=== PATIENT | female | born 1980 | race Caucasian/White ===

== ENCOUNTER 2025-03-04 14:34 | Inpatient (IN) | payer MEDICARE, MEDICAID ==
[2025-03-04] MEDS ORDERED: ACETAMINOPHEN TAB 325 MG TAB PO PRN (15:02)
[2025-03-04] MEDS ORDERED: MAG HYDROX/AL HYDROX/SIMETH 355 ML BOTTLE PO PRN (15:02)
[2025-03-04] MEDS ORDERED: hydrOXYzine HCL 50 MG/ML 1 ML VIAL IM PRN (16:37)
[2025-03-05] MEDS: CYCLOBENZAPRINE 10 MG TAB PO PRN
[2025-03-05] MEDS ORDERED: NICOTINE 14MG/24HR PATCH TRANSDERM SCH (09:00)
[2025-03-05] MEDS ORDERED: GABAPENTIN 100 MG CAP PO PRN (13:19)
--- NOTE | 2025-03-05 13:26 | P.HP ---
Psychiatric H&P - . H&P Date: 03/05/25 History & Physical: Allergies Allergy/AdvReac Type Severity Reaction Status Date / Time meperidine from Demerol Allergy Unknown Verified 03/04/25 15:02 Vital Signs Temp 98.4 F 03/05/25 09:00 Pulse 133 H 03/05/25 09:00 Resp 18 03/05/25 09:00 BP 121/85 03/05/25 09:00 Pulse Ox 98 03/05/25 09:00 FiO2 Intake & Output 03/04/25 03/05/25 03/05/25 18:59 06:59 18:59 Weight 74 kg 70.76 kg Laboratory Last Values Estimated Ave Glu mg/dL 120 mg/dL 03/05/25 07:55 Hemoglobin A1c 5.8 % (<=6.0) 03/05/25 07:55 03/05/25 13:16 IDENTIFYING DATA: Patient is a 44-year-old female, on SSD and living [facility] CHIEF COMPLAINT: AH, delusions HPI: Patient presented to the hospital with psychosis. Per EPS, "Pt is a transfer from [facility]. Reports state that pt has been having new onset AH that are threatening in nature. Pt stated that they are coming from her tooth. Report states that he is delusional and paranoid. Also reports no sleep in 4 days. Denies SI or HI. VSS, HCG neg, Labs reviewed and RBC 5.51H but otherwise remarkable, TSH complete and WNL. L sided CP r/t left lower lung base atelectasis. EKG SR; Borderline:possible L atrial enlargement. Right hip pain x 2 year. Able to complete at [facility] independently, no DME reported. UDS +marijuana. ETOH <10. Covid negative. No prns or restraints. ED has medically cleared pt per Pamela, RN and charting/documentation. No guardian. Pt is pet and cert." Patient seen and evaluated on the unit and was agreeable with speaking to lyric writer in office. She states for the past month she has been experiencing auditory hallucinations that are negative in nature, calling her bad names and cuss words. This appears ego dystonic as she is aware of them and does not identify with them. She also reports paranoia described as feeling as though people are out to get her family. OCD screening was negative. Patient reports experiencing chest pain that ultimately caused her to go to the ED however workup has been unremarkable including EKG. She no longer hears voices stating she last heard them yesterday. She does report some stressors including financially in addition to taking care of her grandkids daily, dropping them off at school and getting them ready in the morning. She reports some sleep difficulties otherwise denies any appetite changes, low energy, anhedonia, poor concentration. Patient denies any suicidal or homicidal ideations intent or plan. At this time patient denies any auditory or visual hallucinations. Patient denies any flight of ideas racing thoughts and increased in goal directed behavior. Patient admits to using THC daily, denies any alcohol or nicotine use. She does report a history of head injury back in the 90s that caused her to have a concussion. She reports recently started Flexeril for muscle pain. PAST PSYCHIATRIC HISTORY: Patient has no past psych history. Patient denies being on any psychiatric medications. Patient denies any previous psychiatric hospitalizations. Patient denies any psychiatric outpatient follow-up. Patient denies any history of suicide attempts in the past. PMH: as per ER note ALLERGIES: as per EMR SUBSTANCE USE HISTORY: Cannabis daily FAMILY PSYCHIATRIC/SUBSTANCE USE HISTORY: Patient states her aunt has schizophrenia SOCIAL HISTORY: Patient is living with her fianc and she has 2 children and 2 grandkids. She completed high school however is on SSD. MENTAL STATUS EXAM: General Appearance: Patient appears to be stated age is alert, directable, and attempts to cooperate. Patient appears to have fair hygiene and grooming. She is wearing glasses Behavior: Patient is seated without any agitated behavior. Speech: Patient's speech is fluent and nonpressured. Mood/Affect: Patient reports their mood is "anxious", affect is congruent and constricted. Suicidality/Homicidality: Patient denies having any homicidal ideation intent or plan. Denies any suicidal ideations intent or plan Perceptions: Patient denies any visual hallucinations and denies any auditory hallucinations Though content/process: There is no evidence of any delusional thought content and thought process is linear and goal-directed. Memory and concentration: AOX3, grossly intact for the purposes of this session. Can spell "WORLD" backwards Judgment and insight: Fair STRENGTHS/WEAKNESSES: strength is that patient is resilient and has family support. Weakness is that patient has poor judgment and has financial stressors INTELLECT: Average IMPRESSIONS: Psychosis, unspecified Rule out medication induced psychotic disorder Cannabis use disorder Anxiety, unspecified PLAN: -Patient is admitted under voluntary status to [facility] for stabilization of psychiatric symptoms and safety. Patient has signed adult voluntary form and and is placed in patient's chart. -Medications : Start Seroquel 50 mg at bedtime for psychosis/sleep, discontinue Flexeril and start gabapentin instead for pain - Ativan and Haldol PRN for agitation/aggression -Patient was counselled on substance abuse and desired to cut back on use -Patient was informed of the risks, benefits and side effects of the medication and patient verbally consented to taking the medications. Patient signed med consent form and was placed in chart. Patient offered and accepted patient education sheet for antipsychotics. -Internal Medicine consult to perform medical evaluation and physical. -NRT -not needed as patient does not smoke -SW on board for discharge planning. Encourage patient to participate in groups to work on coping skills. Anticipate discharge in 2-3 days back home with lydia
[2025-03-05] MEDS: hydrOXYzine HCL 25 MG TAB PO PRN (15:46)
[2025-03-05] MEDS: MAGNESIUM HYDROXIDE 2,400 MG/30 ML CUP PO PRN (15:47)
[2025-03-05] MEDS: IBUPROFEN 600 MG TAB PO PRN (15:47)
[2025-03-05] MEDS: QUEtiapine 50 MG TAB PO SCH (21:44)
--- NOTE | 2025-03-06 00:16 | P.MDCNMH ---
<Jo Ann Anderson - Last Filed: 03/06/25 00:03> History of Present Illness H&P Date: 03/05/25 Patient is a 44 year old female who was transferred from [facility]. She is seen today in medical consultation for medical management. It was reported that she has been having new onset AH which are threatening in nature. The report also mention that she is delusional and paranoid and has not slept in 4 days. The patient had mentioned earlier that her primary reason to present to the ED was chest pain. However the workup in the ED was unremarkable including EKG.VSS, HCG neg, Labs reviewed and RBC 5.51H but otherwise remarkable, TSH complete and WNL. L sided CP r/t left lower lung base atelectasis. EKG Sinus rhytm; Borderline:possible L atrial enlargement. Patient does report stressors including financially in addition to taking care of her grandkids. Patient reports to using THC daily but denies any alcohol or nicotine use. At the time of this interview, patient complains of chest pain as well as chest wall tenderness, radiating to her upper back. The pain is intermittent, no alleviating or provoking factors. She states having a cyst her breast that was painful for which she has undergone all workup and her doctors have told her to monitor at this time. She also complains of tingling sensation in her upper as well as lower extremities. She states having bulging at T9 and attributes the tingling sensation to that. Associated with that she also complains of dizziness that just started and attributes that to the medications she is receiving while being admitted here. She also has recently started taking Flexeril for muscle spasm. Denies fever, chills, shortness of breath, cough, palpitations, abdominal pain, nausea, vomiting, hematuria, dysuria, hematochezia, melena, headache, slurred speech, numbness, tingling, dizziness, lightheadedness, blurred vision, double vision. Vitals T 98.3 F, MS 129 bpm, RR 18, BP 137/88, oxygen saturation 98% on room air EKG independently interpreted as sinus rhythm, T wave inversions in lead III, V1, V2, rate 86 bpm, QTc 430 ms Labs show glucose 120, A1c 5.8 Review of systems: Pertinent positives and negatives as discussed in HPI, a complete review of systems was performed and all other systems are negative. Physical examination: Vital signs reviewed General: nontoxic, no distress, appears at stated age Derm: warm, dry, intact Head: atraumatic, normocephalic, symmetric Cardiovascular: S1 S2 reg, no murmur, chest wall tender to palpation Lungs: CTA bilateral, no rhonchi, no rales, no accessory muscle use Abdominal: soft, non-tender to palpation Extremities: No cyanosis, clubbing, or pedal edema. Neuro: Alert, Oriented, Gross neurological examination did not reveal any focal deficits. Psych: well appearing, appropriate affect Assessment/Plan: Patient is a 44 year old female who was transferred from [facility]. She is seen today in medical consultation for medical management. She has been admitted to mental health unit. #. Chest pain #. Tachycardia, resolved Outside facility information: VSS, HCG neg, Labs reviewed and RBC 5.51H but otherwise remarkable, TSH complete and WNL. L sided CP r/t left lower lung base atelectasis. EKG Sinus rhytm; Borderline:possible L atrial enlargement. EKG independently interpreted as sinus rhythm, T wave inversions in lead III, V1, V2, rate 86 bpm, QTc 430 ms Chest wall tenderness Pain doesn't seem to be cardiac related Tylenol PRN for pain management #. GI upset Continue Maalox 30 ml PO Q4HR PRN #. Constipation Continue Milk of magnesia 2400 mg PO daily PRN #. Muscle spasm Continue Flexeril 10 mg daily as needed #. Psychosis #. Anxiety/ Agitation Currently receiving Seroquel 50 mg p.o. at bedtime, hydroxyzine 25 mg p.o. 3 times daily as needed, hydroxyzine 25 mg IM 3 times daily as needed as well as Haldol and Ativan as needed per primary admitting team Monitor vital signs Monitor CBC Monitor CMP Dictation was produced using [employer] dictation software. please excuse any grammatical, word or spelling errors. Jo Ann Anderson MD PGY-1 IM Past Medical History Additional Past Medical History / Comment(s): Post Concussion Syndrome since 1993 History of Any Multi-Drug Resistant Organisms: None Reported Past Surgical History: Orthopedic Surgery, Tubal Ligation Additional Past Surgical History / Comment(s): Back Fusion Past Anesthesia/Blood Transfusion Reactions: No Reported Reaction Smoking Status: Never smoker - Past Family History Mother History Unknown: Yes Medications and Allergies Allergies Allergy/AdvReac Type Severity Reaction Status Date / Time meperidine [From Demerol] Allergy Unknown Verified 03/04/25 15:02 Physical Exam Vitals: Vital Signs Temp Pulse Resp BP Pulse Ox 03/05/25 19:51 98.3 F 129 H 18 137/88 98 03/05/25 09:00 98.4 F 133 H 18 121/85 98 <Sonu Calloway M - Last Filed: 03/06/25 00:15> History of Present Illness I Discussed the case with the resident and agree with the resident's findings I edited the assessment and plan as necessary as documented in the resident's note. Physical Exam Vitals: Vital Signs Temp Pulse Resp BP Pulse Ox 03/05/25 19:51 98.3 F 129 H 18 137/88 98 03/05/25 09:00 98.4 F 133 H 18 121/85 98 Cranial Nerve Examination - Cranial Nerves Cranial Nerve II- Optic: Intact Cranial Nerve III- Oculomotor: Intact Cranial Nerve IV- Trochlear: Intact Cranial Nerve V- Trigeminal: Intact Cranial Nerve - Abducens: Intact Cranial Nerve VII- Facial: Intact Cranial Nerve VIII- Auditory: Intact Cranial Nerve IX- Glossopharyngeal: Intact Cranial Nerve X- Vagus: Intact Cranial Nerve XI- Accessory: Intact Cranial Nerve XII- Hypoglossal: Intact
[2025-03-06] MEDS ORDERED: ACETAMINOPHEN TAB 325 MG TAB PO PRN (01:44)
[2025-03-06 12:09] LABS: Basophils # (A) 0.05 10*3/uL (0.00-0.10); Basophils % (A) 0.8 %; Eosinophils % (A) 3.1 %; HCT 46.5 % (37.2-46.3); HGB 15.2 g/dL (12.0-15.0); Lymphocytes # (A) 1.45 10*3/uL (0.90-5.00); Lymphocytes % (A) 22.6 %; MCH 27.5 pg (27.0-32.0); MCHC 32.7 g/dL (32.0-37.0); MCV 84.1 fL (80.0-97.0); Mean Platelet Volume 11.9 fL (9.5-12.2); Monocytes # (A) 0.46 10*3/uL (0.20-1.00); Monocytes % (A) 7.2 %; Neutrophils # (A) 4.26 10*3/uL (1.80-7.70); Neutrophils % (A) 66.1 %; Platelet Count 249 10*3/uL (140-440); RBC 5.53 10*6/uL (4.10-5.20); RDW 15.2 % (11.5-14.5); WBC 6.43 10*3/uL (4.50-10.00)
--- NOTE | 2025-03-06 12:18 | P.PN ---
Progress Note - Text Progress Note Date: 03/06/25 Interval History: Patient was seen wandering the hallways and was directable and agreeable to sp arlin with screen writer in the [place] privately. She mentions sleeping well overnight however slept through breakfast this morning. She states she has been keeping active by reading, feeling better overall. She does report auditory hallucinations that appear more negative in nature, interrupting her at times and telling her not to look at other people. At this time patient denies any suicidal or homicidal ideations, intent or plan. Patient denies any visual hallucinations and denies any paranoia or delusions. Patient denies any side effects from the medications and has been compliant with meds. Mental Status Exam: General Appearance: Patient appears to be stated age is alert, directable, and cooperative. She is wearing glasses and has fair grooming and hygiene Behavior: Patient is calmly seated without any agitated behavior. Speech: Patient's speech is fluent and nonpressured. Mood/Affect: Mood is improving mildly, affect is congruent and constricted. Suicidality/Homicidality: Patient denies having any suicidal or homicidal ideation intent or plan. Perceptions: Patient denies any visual hallucinations however she does report auditory hallucinations Though content/process: There is no evidence of any delusional thought content and thought process is linear. Memory and concentration: AOX3, grossly intact for the purposes of this session Judgment and insight: Improving mildly Assessment Psychosis, unspecified Rule out schizophrenia versus schizoaffective disorder Cannabis use disorder Anxiety, unspecified Plan: -Patient continues to meet criteria for inpatient psychiatric admission for symptom stabilization and safety. Patient has signed adult voluntary form and medication consent and was placed in patient's chart. -Medications: Increase Seroquel to 100 mg at bedtime for psychosis/sleep -When necessary Ativan and Haldol for agitation/aggression. -Labs: Grossly WNL -SW on board for discharge planning. Encouraged the patient to participate in milieu. Anticipate discharge later this week/early next week pending stabilization in auditory hallucinations
[2025-03-06 12:22] LABS: ALT 23 U/L (4-34); AST 23 U/L (14-36); African American GFR (CKD) >90 (>60 ml/min/1.73 sqM); Albumin 4.7 g/dL (3.5-5.0); Alkaline Phosphatase 67 U/L (38-126); Anion Gap 7 mmol/L; Blood Urea Nitrogen 15 mg/dL (7-17); Calcium 10.1 mg/dL (8.4-10.2); Carbon Dioxide 29 mmol/L (22-30); Chloride 104 mmol/L (98-107); Glucose 99 mg/dL (74-99); Non-African American GFR(CKD) 85 (>60 ml/min/1.73 sqM); Potassium 4.2 mmol/L (3.5-5.1); Sodium 140 mmol/L (137-145); Total Bilirubin 0.7 mg/dL (0.2-1.3)
[2025-03-06] MEDS: QUEtiapine 50 MG TAB PO SCH (21:46)
[2025-03-07 10:44] VITALS: RESP 18
--- NOTE | 2025-03-07 12:32 | P.PN ---
Progress Note - Text Progress Note Date: 03/07/25 Interval History: Patient was seen in her room reading a book and was directable and agreeable to speak with investment underwriter in the. She states reading is a coping skill for her in addition to doing crossword puzzles. She admitted to feeling a bit overwhelmed due to being in this environment however states the as needed hydroxyzine has been helpful for anxiety. She reports sleeping well however does report some drowsiness this morning which is a concern for her as she needs to focus in the morning to get her grandkids ready for school. This was discussed the patient was informed that any adverse effects should likely resolve in a few days in addition to possibly taking her Seroquel a bit earlier in the evening. She states her plans on visiting her today. In regards to the chip in her tooth, she states previously this being helpful throughout the years however when the voices turn negative this was what prompted her to get admitted to the hospital, no longer hearing voices today. She was goal oriented today. At this time patient denies any suicidal or homicidal ideations, intent or plan. Patient denies any auditory, visual hallucinations and denies any paranoia or delusions. Patient has been compliant with meds. Mental Status Exam: General Appearance: Patient appears to be stated age is alert, directable, and cooperative. Behavior: Patient is calmly seated without any agitated behavior. Speech: Patient's speech is fluent and nonpressured. Mood/Affect: Mood is improving mildly, affect is congruent and constricted. Suicidality/Homicidality: Patient denies having any suicidal or homicidal ideation intent or plan. Perceptions: Patient denies any visual hallucinations and denies any auditory hallucinations Though content/process: There is evidence of delusional thoughts of having a chip implanted in her tooth however this appears baseline, patient overall l inear and goal oriented in conversation Memory and concentration: AOX3, grossly intact for the purposes of this session Judgment and insight: Improving mildly Assessment Schizoaffective disorder, bipolar type Cannabis use disorder Anxiety, unspecified Plan: -Patient continues to meet criteria for inpatient psychiatric admission for symptom stabilization and safety. Patient has signed adult voluntary form and medication consent and was placed in patient's chart. -Medications: Continue Seroquel 100 mg at bedtime for psychosis/sleep -When necessary hydroxyzine and Haldol for agitation/aggression. -Labs: Grossly WNL -SW on board for discharge planning. Encouraged the patient to participate in milieu. Anticipate discharge back home with tomorrow
[2025-03-08 08:57] VITALS: BP 136/93; PULSE 109; TEMP 99
--- NOTE | 2025-03-08 11:54 | P.DS ---
Providers Date of admission: 03/04/25 19:54 Expected date of discharge: 03/08/25 Attending physician: Lianne Carey MD Consults: 03/04/25 15:02 Consult Physician Routine Consulting Provider: Dorcas Physician Consult Reason/Comments: H&P Do you want consulting provider notified?: Yes Primary care physician: Cassidy Pearson - Discharge Diagnosis(es) (1) Schizoaffective disorder, bipolar type Current Visit: Yes Status: Acute (2) Anxiety Current Visit: Yes Status: Acute Priority: High (3) Cannabis use disorder Current Visit: Yes Status: Acute Priority: Low Hospital Course: Admission HPI: Admission note was completed by promotion writer "Patient presented to the hospital with psychosis. Per EPS, "Pt is a transfer from [facility]. Reports state that pt has been having new onset AH that are threatening in nature. Pt stated that they are coming from her tooth. Report states that he is delusional and paranoid. Also reports no sleep in 4 days. Denies SI or HI. VSS, HCG neg, Labs reviewed and RBC 5.51H but otherwise remarkable, TSH complete and WNL. L sided CP r/t left lower lung base atelectasis. EKG SR; Borderline:possible L atrial enlargement. Right hip pain x 2 year. Able to complete at [facility] independently, no DME reported. UDS +marijuana. ETOH <10. Covid negative. No prns or restraints. ED has medically cleared pt per Pamela, RN and charting/documentation. No guardian. Pt is pet and cert." Patient seen and evaluated on the unit and was agreeable with speaking to promotion writer in office. She states for the past month she has been experiencing auditory hallucinations that are negative in nature, calling her bad names and cuss words. This appears ego dystonic as she is aware of them and does not identify with them. She also reports paranoia described as feeling as though people are out to get her family. OCD screening was negative. Patient reports experiencing chest pain that ultimately caused her to go to the ED however workup has been unremarkable including EKG. She no longer hears voices stating she last heard them yesterday. She does report some stressors including financially in addition to taking care of her grandkids daily, dropping them off at school and getting them ready in the morning. She reports some sleep difficulties otherwise denies any appetite changes, low energy, anhedonia, poor concentration. Patient denies any suicidal or homicidal ideations intent or plan. At this time patient denies any auditory or visual hallucinations. Patient denies any flight of ideas racing thoughts and increased in goal directed behavior. Patient admits to using THC daily, denies any alcohol or nicotine use. She does report a history of head injury back in the 90s that caused her to have a concussion. She reports recently started Flexeril for muscle pain." Hospital course: Upon admission to the unit patient was directable and agreeable to commence treatment and signed adult voluntary form.. Patient got along well with other patients on the unit and followed unit protocol. Patient was compliant with the medications and denied any side effects throughout hospital course. Patient was started on Seroquel and this was increased to 100 mg at bedtime for psychosis/sleep. Patient spoke of her stressors and engaged in therapy both group and individual. Patient was also seen by medical team for history and physical exam. Throughout the course of the hospitalization patient gradually improved with regards to mood, anxiety, sleep and became more future oriented with improved insight and judgment. On the day of discharge patient denied any suicidal or homicidal ideations intent or plan denied any auditory or visual hallucinations. The patient denied any access to guns or weapons. Patient denied any paranoia and did not endorse any delusions. Patient does not have a significant history of substance abuse and was counseled on abstaining from all substances including alcohol and marijuana. Patient was also counseled on the medications and need for regular compliance and was encouraged to follow-up with their outpatient appointment for mental health and also for primary care. Prior to discharge a family meeting will be arranged by manager social services to answer any questions and ensure safety upon discharge including making sure that guns/weapons are either removed from the home or locked away. Patient to be discharged back home with partner will follow-[facility] with [facility] [place]. Mental status exam: General Appearance: Patient appears to be stated age is alert, pleasant, and cooperative. Patient is in no acute distress and has improved hygiene and grooming. She wears glasses Behavior: Patient is calmly seated without any agitated behavior. Speech: Patient's speech is fluent and nonpressured. Mood/Affect: Patient reports their mood is "good", affect is congruent and euthymic. Suicidality/Homicidality: Patient denies having any suicidal or homicidal ideation intent or plan. Perceptions: Patient denies any auditory or visual hallucinations. Though content/process: There is no evidence of any delusional thought content and thought process is linear and goal-directed. More future oriented Memory and concentration: AOX3, grossly intact for the purposes of this session. Can spell "WORLD" backwards correctly. Judgment and insight: Fair Impression: Schizoaffective disorder, bipolar type Cannabis use disorder Anxiety, unspecified Plan: -Continue with discharge today as patient has improved and stabilized psychiatrically and is not currently an imminent threat to themself and/or others. -Continue medications: Seroquel 100 mg at bedtime -Patient was counseled on the need for medication compliance and appropriate follow-up at mental health and also primary care for medical issues. Patient verbalized understanding and agreed. -Social work to help coordinate patients discharge today arrange for and conduct family meeting to ensure safety upon discharge and answer any questions/concerns. also to ensure safe home environment that guns/weapons are either removed from the home or locked away. Social work also to arrange for patients follow up appointments with [facility] for psychiatric care along with follow up with primary care provider. -Patient counseled on abstaining from recreational drugs and marijuana and alcohol. Was informed/educated on the adverse effects on their physical and mental health. Patient verbally agreed and understood. -Patient was instructed to return to the hospital or seek immediate medical care if their psychiatric or medical symptoms do worsen or reoccur. Abnormal Labs 03/06/25 11:36 RBC 5.53 H Hgb 15.2 H Hct 46.5 H Allergies Allergy/AdvReac Type Severity Reaction Status Date / Time meperidine [From Demerol] Allergy Unknown Verified 03/04/25 15:02 Vital Signs Temp 99 F 03/08/25 08:51 Pulse 109 H 03/08/25 08:51 Resp 18 03/08/25 08:51 BP 136/93 03/08/25 08:51 Pulse Ox 99 03/08/25 08:51 FiO2 Patient Condition at Discharge: Stable Plan - Discharge Summary Discharge Rx Participant: No New Discharge Prescriptions: New hydrOXYzine HCL [Atarax] 25 mg PO TID PRN 30 Days #30 tab PRN Reason: Agitation Or Acute Anxiety QUEtiapine [SEROquel] 100 mg PO HS 30 Days #60 tab Discharge Medication List QUEtiapine [SEROquel] 100 mg PO HS 30 Days #60 tab 03/08/25 [Rx] hydrOXYzine HCL [Atarax] 25 mg PO TID PRN 30 Days #30 tab 03/08/25 [Rx] Follow up Appointment(s)/Referral(s): ALLEN Blum [Other] - 03/14/25 9:00 am Lianne Hernandez [Other] - 1 Week Patient Instructions/Handouts: Stress (DC), Mood Disorders (DC), Insomnia (DC) Activity/Diet/Wound Care/Special Instructions: [facility] Discharge Info Avoid the use of street drugs and alcohol. Take all medications as prescribed. When you are in need of refills on your medications, please contact your outpatient medical provider and/or outpatient psychiatrist. Please go to your scheduled outpatient appointments for aftercare treatment. If symptoms return or become worse, call the crisis line at or and/or visit the nearest emergency room for assistance. National Suicide and Crisis Lifeline - call or text 579 Discharge Disposition: HOME SELF-CARE
== END 2025-03-08 13:07 | disposition home or self-care (01) | DRG 885 ==
LOC: 3MHU 19:54
PROVIDERS: ADMIT Psychiatry & Neurology Psychiatry; ATTEND Psychiatry & Neurology Psychiatry
DX: F25.0 Schizoaffective disorder, bipolar type (principal); F12.10 Cannabis abuse, uncomplicated; J98.11 Atelectasis; F41.9 Anxiety disorder, unspecified; K59.00 Constipation, unspecified; Z87.828 Personal history of other (healed) physical injury and trauma; Z98.1 Arthrodesis status; M25.551 Pain in right hip; G47.9 Sleep disorder, unspecified; M62.838 Other muscle spasm; Z88.5 Allergy status to narcotic agent
CPT/HCPCS: 80053; 83036; 85025; 93005